=== PATIENT | female | born 1940 | race Caucasian/White ===

== ENCOUNTER 2016-08-31 09:11 | Outpatient (CLI) | payer MEDICARE, BC ==
[~2016-08-31 09:11] MED LIST: AMLO5TAB4 PO; CALC-883 PO; CLON0.1T14 PO; DULO60CA45 PO; ERGO50003 PO; HYDR-552 PO; LORA0.5T PO; MAG30ORA PO; MAGN400O4 PO; MAGN400T26 GT; MIRT15TA7 PO; MULT1TAB11 PO; NA P133E RC; PANT40SU PO
== END 2016-08-31 23:59 | disposition home or self-care (01) ==
LOC: CT 09:11
PROVIDERS: ATTEND Internal Medicine
DX: D17.0 Benign lipomatous neoplasm of skin and subcutaneous tissue of head, face and neck (principal)
CPT/HCPCS: 70450-TC

== ENCOUNTER 2016-10-13 14:09 | Inpatient (IN) | payer MEDICARE, BC ==
[~2016-10-13] VITALS: Ht 160 cm; Wt 78.1 kg
[2016-10-13] MEDS ORDERED: MORPHINE SULFATE INJ 2 MG/ML DISP.SYRIN IV ONE (14:30)
[2016-10-13] MEDS ORDERED: ONDANSETRON HCL/PF 4 MG/2 ML VIAL IVP ONE (14:30)
[2016-10-13] MEDS ORDERED: IV NS 0.9% 500 ML BAG IV ONE (14:30)
[2016-10-13] MEDS ORDERED: IV NS 0.9% 500 ML IV ONE (14:38)
[2016-10-13] MEDS ORDERED: IV SET PRIMARY 1 EA INFUS.SET MC ONE ×2 (14:38→15:46)
[2016-10-13] MEDS ORDERED: ONDANSETRON HCL/PF 4 MG/2 ML VIAL ONE (14:38)
[2016-10-13] MEDS ORDERED: MORPHINE SULFATE INJ 4 MG/ML DISP.SYRIN ONE (14:38)
[2016-10-13 14:40] LABS: BASOPHILS # (AUTO) 0.4 /CMM (0.0-0.2); BASOPHILS % (AUTO) 2.7 % (0.0-2.0); EOSINOPHILS % (AUTO) 0.1 % (0.0-6.0); HEMATOCRIT 33 % (33-45); LYMPHOCYTES # (AUTO) 0.6 /CMM (0.8-4.8); LYMPHOCYTES % (AUTO) 4.1 % (20.0-44.0); MEAN CORPUSCULAR HEMOGLOBIN 32 PG (26.0-33.0); MEAN CORPUSCULAR HGB CONC 34 g/dl (31.0-36.0); MEAN CORPUSCULAR VOLUME 95 fL (82-100); MONOCYTES # (AUTO) 1.2 /CMM (0.1-1.30); MONOCYTES % (AUTO) 8.8 % (2.0-12.0); NEUTROPHILS % (AUTO) 84.3 % (43.0-81.0); PLATELET COUNT (AUTO) 250 /CMM (150-450); RDW COEFFICIENT OF VARIATION 13.2 (11.5-15.0); RED BLOOD CELL COUNT(AUTO) 3.43 MIL/uL (4.0-5.2); WHITE BLOOD COUNT (AUTO) 14.2 K/uL (4.3-11.0)
[2016-10-13 14:54] LABS: INR 1.01 (0.87-1.13); PROTHROMBIN TIME 10.5 SECS (9.5-12.7)
[2016-10-13 14:57] LABS: ALANINE AMINOTRANSFERASE 10 U/L (12-78); ALBUMIN 3.4 g/dL (3.4-5.0); ALKALINE PHOSPHATASE 69 U/L (46-116); ASPARTATE AMINOTRANSFERASE 25 U/L (15-37); BILIRUBIN,DIRECT 0.1 mg/dL (0.0-0.2); BILIRUBIN,TOTAL 0.4 mg/dL (0.2-1.0); CALCIUM, SERUM 8.7 mg/dL (8.5-10.1); CARBON DIOXIDE 14 mmol/L (21-32); CHLORIDE 108 mmol/L (98-107); CREATININE 5.1 mg/dL (0.6-1.3); GLUCOSE 183 mg/dL (74-106); LIPASE 146 U/L (73-393); POTASSIUM 3.7 mmol/L (3.5-5.1); SODIUM SERUM 139 mmol/L (136-145); TOTAL PROTEIN, SERUM 7.3 g/dL (6.4-8.2)
[2016-10-13 14:58] LABS: TROPONIN I < 0.017 ng/mL (0.00-0.056)
[2016-10-13 14:59] LABS: UREA NITROGEN, BLOOD 87 mg/dL (7-18)
[2016-10-13] MEDS ORDERED: IV NS 0.9% 1,000 ML BAG IV ONE (15:30)
[2016-10-13 15:44] LABS: APPEARANCE,URINE Clear (CLEAR); BLOOD, URINE Negative Ery/uL (NEGATIVE); COLOR,URINE Yellow (YELLOW); KETONES,URINE Trace (NEGATIVE); LEUKOCYTE ESTERASE ,URINE Small (NEGATIVE); NITRITE, URINE Negative (NEGATIVE); PROTEIN,URINE 30 mg/dl (NEGATIVE); UGLUCOSE Negative (NEGATIVE); UROBILINOGEN,URINE 0.2 EU/dL (0.2)
[2016-10-13] MEDS ORDERED: IV NS 0.9% 1,000 ML ONE (15:46)
[2016-10-13] MEDS ORDERED: LEVOFLOXACIN 750 MG /D5W 150ML 150 ML IV ONE ×2 (16:00→16:08)
[2016-10-13] MEDS ORDERED: IV SET PRIMARY PUMP SET 1 EA INFUS.SET MC ONE ×2 (16:08→19:53)
[2016-10-13 16:23] LABS: BILIRUBIN,URINE SMALL (NEGATIVE)
[2016-10-13 16:24] LABS: BACTERIA,URINE Few /HPF (None Seen); RBC,URINE 0-2 /HPF (0-2); SQUAMOUS EPITHELIAL CELL,UR Few /HPF (None Seen)
[2016-10-13] MEDS ORDERED: MAGNESIUM HYDROXIDE 30 ML UDC PO PRN (18:00)
[2016-10-13] MEDS ORDERED: Z GUARD REMEDY 2 OZ OINT TP PRN (18:00)
[2016-10-13] MEDS ORDERED: NA PHOS,M-B/NA PHOS,DI-BA 1 EA ENEMA RC PRN (18:00)
[2016-10-13] MEDS ORDERED: ZOLPIDEM TARTRATE 5 MG TABLET PO PRN (18:00)
[2016-10-13] MEDS ORDERED: ACETAMINOPHEN 325 MG TABLET PO PRN (18:00)
[2016-10-13] MEDS ORDERED: CLONIDINE HCL 0.1 MG TABLET PO PRN (18:00)
[2016-10-13] MEDS ORDERED: MAG HYDROX/AL HYDROX/SIMETH 30 ML UDC PO PRN (18:00)
[2016-10-13] MEDS ORDERED: ONDANSETRON HCL/PF 4 MG/2 ML VIAL IVP PRN (18:00)
[2016-10-13 19:30] VITALS: BP 103/52
[2016-10-13] MEDS ORDERED: SECONDARY IV SET 1 EA INFUS.SET MC ONE (19:53)
[2016-10-13 20:00] VITALS: BP 103/52
[2016-10-13] MEDS: IV NS 0.9% 1,000 ML IV PRN (20:04)
[2016-10-13] MEDS: CEFTRIAXONE 1 G in IV D5W 50 ML IV SCH (20:12)
[2016-10-13] MEDS: AZITHROMYCIN 500 MG in IV D5W 250 ML IV SCH (20:43)
[2016-10-13] MEDS: MIRTAZAPINE 15 MG TABLET PO SCH (21:28)
[2016-10-14] MEDS: LORAZEPAM 0.5 MG TABLET PO PRN ×3 (01:01→17:30)
[2016-10-14] MEDS ORDERED: LORA-258 PO (01:44)
[2016-10-14] MEDS ORDERED: SPIR25TA PO (01:44)
[2016-10-14] MEDS ORDERED: DULO30CA2 PO (01:44)
[2016-10-14] MEDS ORDERED: METO-304 PO (01:44)
[2016-10-14] MEDS ORDERED: BENA20TA2 PO (01:44)
[2016-10-14] MEDS ORDERED: PANT40TA2 PO (01:44)
[2016-10-14] MEDS ORDERED: CALC-838 PO (01:44)
[2016-10-14] MEDS ORDERED: DIVA250T PO (01:44)
[2016-10-14] MEDS ORDERED: CHLO25TA2 PO (01:44)
[2016-10-14] MEDS ORDERED: HYDR-3326 GT (01:44)
[2016-10-14] MEDS ORDERED: MIRT15TA7 PO (01:44)
[2016-10-14 08:00] VITALS: BP 103/55
[2016-10-14] MEDS: PANTOPRAZOLE 40 MG TABLET.DR PO SCH (08:48)
[2016-10-14] MEDS: MULTIPLE VIT/MINERALS 1 EA TABLET PO SCH (08:48)
[2016-10-14] MEDS: CALCIUM CARB 250MG /VITAMIN D 1 UDTAB PO SCH (08:48)
[2016-10-14] MEDS ORDERED: Medication Not On Formulary EA (Duloxetine Hcl (Cymbalta) 60 MG) PO SCH (09:00)
[2016-10-14 10:34] LABS: EOSINOPHILS % (AUTO) 0.2 % (0.0-6.0); HEMATOCRIT 27 % (33-45); LYMPHOCYTES % (AUTO) 6.9 % (20.0-44.0); MEAN CORPUSCULAR HEMOGLOBIN 31 PG (26.0-33.0); MEAN CORPUSCULAR HGB CONC 33 g/dl (31.0-36.0); MEAN CORPUSCULAR VOLUME 95 fL (82-100); MONOCYTES # (AUTO) 1.2 /CMM (0.1-1.30); MONOCYTES % (AUTO) 7.6 % (2.0-12.0); NEUTROPHILS # (AUTO) 13.1 /CMM (1.8-8.9); NEUTROPHILS % (AUTO) 85.3 % (43.0-81.0); PLATELET COUNT (AUTO) 210 /CMM (150-450); RDW COEFFICIENT OF VARIATION 13.9 (11.5-15.0); RED BLOOD CELL COUNT(AUTO) 2.86 MIL/uL (4.0-5.2); WHITE BLOOD COUNT (AUTO) 15.3 K/uL (4.3-11.0)
[2016-10-14] MEDS: AMLODIPINE BESYLATE 5 MG TABLET PO SCH (11:00)
[2016-10-14 11:12] LABS: ALBUMIN 2.6 g/dL (3.4-5.0); BILIRUBIN,TOTAL 0.3 mg/dL (0.2-1.0); CALCIUM, SERUM 8.2 mg/dL (8.5-10.1); CREATININE 4.6 mg/dL (0.6-1.3); MAGNESIUM 1.8 mg/dL (1.8-2.4); PHOSPHORUS 3.9 mg/dL (2.5-4.9); POTASSIUM 3.9 mmol/L (3.5-5.1); TOTAL PROTEIN, SERUM 6.3 g/dL (6.4-8.2)
[2016-10-14] MEDS: IV NS 0.9% 1,000 ML IV PRN (13:47)
[2016-10-14 16:00] VITALS: BP 116/77
[2016-10-14] MEDS: LACTOBACILLUS RHAMNOSUS GG 1 EACH CAP.SPRINK PO SCH (17:27)
[2016-10-14] MEDS: CEFTRIAXONE 1 G in IV D5W 50 ML IV SCH (18:50)
[2016-10-14 20:20] VITALS: BP 135/66
[2016-10-14] MEDS: AZITHROMYCIN 500 MG in IV D5W 250 ML IV SCH (20:42)
[2016-10-14] MEDS: MIRTAZAPINE 15 MG TABLET PO SCH (21:29)
[2016-10-14 22:00] VITALS: BP 135/66
[2016-10-15] MEDS: IV NS 0.9% 1,000 ML IV PRN ×2 (06:04→20:53)
[2016-10-15 08:00] VITALS: BP 125/100
[2016-10-15] MEDS: AMLODIPINE BESYLATE 5 MG TABLET PO SCH (08:10)
[2016-10-15] MEDS: MULTIPLE VIT/MINERALS 1 EA TABLET PO SCH (08:10)
[2016-10-15] MEDS: PANTOPRAZOLE 40 MG TABLET.DR PO SCH (08:10)
[2016-10-15] MEDS: CALCIUM CARB 250MG /VITAMIN D 1 UDTAB PO SCH (08:10)
[2016-10-15] MEDS: LACTOBACILLUS RHAMNOSUS GG 1 EACH CAP.SPRINK PO SCH ×2 (08:10→17:56)
[2016-10-15 08:13] LABS: EOSINOPHILS # (AUTO) 0.1 /CMM (0.0-0.7); EOSINOPHILS % (AUTO) 0.9 % (0.0-6.0); HEMATOCRIT 29 % (33-45); HEMOGLOBIN 9.4 g/dL (11.5-14.8); LYMPHOCYTES # (AUTO) 1.4 /CMM (0.8-4.8); LYMPHOCYTES % (AUTO) 10.1 % (20.0-44.0); MEAN CORPUSCULAR HEMOGLOBIN 31 PG (26.0-33.0); MEAN CORPUSCULAR HGB CONC 32 g/dl (31.0-36.0); MEAN CORPUSCULAR VOLUME 97 fL (82-100); MONOCYTES # (AUTO) 1.3 /CMM (0.1-1.30); NEUTROPHILS # (AUTO) 11.2 /CMM (1.8-8.9); PLATELET COUNT (AUTO) 224 /CMM (150-450); RDW COEFFICIENT OF VARIATION 14.4 (11.5-15.0)
[2016-10-15 08:20] LABS: ALBUMIN 2.9 g/dL (3.4-5.0); BILIRUBIN,TOTAL 0.2 mg/dL (0.2-1.0); CALCIUM, SERUM 8.8 mg/dL (8.5-10.1); CREATININE 4.2 mg/dL (0.6-1.3); MAGNESIUM 1.9 mg/dL (1.8-2.4); PHOSPHORUS 4.2 mg/dL (2.5-4.9); POTASSIUM 4.3 mmol/L (3.5-5.1)
[2016-10-15 09:37] LABS: CREATINE KINASE MB 56.5 ng/mL (0-3.6)
[2016-10-15 16:00] VITALS: BP 152/82
[2016-10-15] MEDS: CEFTRIAXONE 1 G in IV D5W 50 ML IV SCH (17:36)
[2016-10-15 20:00] VITALS: BP_SYST 147; BP_SYST 149; BP_DIAS 67
[2016-10-15] MEDS: AZITHROMYCIN 500 MG in IV D5W 250 ML IV SCH (20:47)
[2016-10-15] MEDS: DIVALPROEX SODIUM 250 MG TABLET.DR PO SCH (21:00)
[2016-10-15] MEDS: MIRTAZAPINE 15 MG TABLET PO SCH (21:39)
[2016-10-16 07:51] LABS: BASOPHILS % (AUTO) 0.4 % (0.0-2.0); EOSINOPHILS # (AUTO) 0.3 /CMM (0.0-0.7); EOSINOPHILS % (AUTO) 2.4 % (0.0-6.0); HEMATOCRIT 28 % (33-45); HEMOGLOBIN 9.3 g/dL (11.5-14.8); LYMPHOCYTES # (AUTO) 1.7 /CMM (0.8-4.8); LYMPHOCYTES % (AUTO) 13.6 % (20.0-44.0); MEAN CORPUSCULAR HEMOGLOBIN 32 PG (26.0-33.0); MEAN CORPUSCULAR HGB CONC 33 g/dl (31.0-36.0); MEAN CORPUSCULAR VOLUME 97 fL (82-100); MONOCYTES # (AUTO) 1.1 /CMM (0.1-1.30); MONOCYTES % (AUTO) 8.5 % (2.0-12.0); NEUTROPHILS # (AUTO) 9.3 /CMM (1.8-8.9); NEUTROPHILS % (AUTO) 75.1 % (43.0-81.0); PLATELET COUNT (AUTO) 248 /CMM (150-450); RDW COEFFICIENT OF VARIATION 14.6 (11.5-15.0); RED BLOOD CELL COUNT(AUTO) 2.94 MIL/uL (4.0-5.2); WHITE BLOOD COUNT (AUTO) 12.4 K/uL (4.3-11.0)
[2016-10-16 08:00] VITALS: BP 147/102
[2016-10-16 08:10] LABS: CALCIUM, SERUM 8.7 mg/dL (8.5-10.1); CREATININE 3.9 mg/dL (0.6-1.3)
[2016-10-16] MEDS: PANTOPRAZOLE 40 MG TABLET.DR PO SCH (09:43)
[2016-10-16] MEDS: MULTIPLE VIT/MINERALS 1 EA TABLET PO SCH (09:43)
[2016-10-16] MEDS: CALCIUM CARB 250MG /VITAMIN D 1 UDTAB PO SCH (09:43)
[2016-10-16] MEDS: LACTOBACILLUS RHAMNOSUS GG 1 EACH CAP.SPRINK PO SCH ×2 (09:43→17:01)
[2016-10-16] MEDS: AMLODIPINE BESYLATE 5 MG TABLET PO SCH (09:47)
[2016-10-16 13:32] LABS: PTH, INTACT 65 pg/mL (15-65)
[2016-10-16 16:00] VITALS: BP 142/85
[2016-10-16] MEDS: CEFTRIAXONE 1 G in IV D5W 50 ML IV SCH (17:02)
[2016-10-16] MEDS: AZITHROMYCIN 500 MG in IV D5W 250 ML IV SCH (19:54)
[2016-10-16 20:00] VITALS: BP 165/88
[2016-10-16] MEDS: MIRTAZAPINE 15 MG TABLET PO SCH (22:11)
[2016-10-16] MEDS: DIVALPROEX SODIUM 250 MG TABLET.DR PO SCH (22:11)
[2016-10-16] MEDS: LORAZEPAM 0.5 MG TABLET PO PRN (23:03)
[2016-10-16] MEDS: MORPHINE SULFATE INJ 2 MG/ML DISP.SYRIN IV PRN (23:27)
[2016-10-17] MEDS: IV NS 0.9% 1,000 ML IV PRN ×2 (03:59→15:13)
[2016-10-17 07:15] LABS: BASOPHILS % (AUTO) 0.2 % (0.0-2.0); EOSINOPHILS # (AUTO) 0.5 /CMM (0.0-0.7); EOSINOPHILS % (AUTO) 4.4 % (0.0-6.0); HEMATOCRIT 26 % (33-45); HEMOGLOBIN 8.6 g/dL (11.5-14.8); LYMPHOCYTES # (AUTO) 2.5 /CMM (0.8-4.8); LYMPHOCYTES % (AUTO) 23.8 % (20.0-44.0); MEAN CORPUSCULAR HEMOGLOBIN 32 PG (26.0-33.0); MEAN CORPUSCULAR HGB CONC 33 g/dl (31.0-36.0); MEAN CORPUSCULAR VOLUME 96 fL (82-100); MONOCYTES # (AUTO) 0.9 /CMM (0.1-1.30); MONOCYTES % (AUTO) 8.9 % (2.0-12.0); NEUTROPHILS # (AUTO) 6.5 /CMM (1.8-8.9); NEUTROPHILS % (AUTO) 62.7 % (43.0-81.0); PLATELET COUNT (AUTO) 242 /CMM (150-450); RDW COEFFICIENT OF VARIATION 14.4 (11.5-15.0); WHITE BLOOD COUNT (AUTO) 10.4 K/uL (4.3-11.0)
[2016-10-17 07:31] LABS: CALCIUM, SERUM 8.6 mg/dL (8.5-10.1); CREATININE 3.3 mg/dL (0.6-1.3); POTASSIUM 3.9 mmol/L (3.5-5.1)
[2016-10-17 08:00] VITALS: BP 129/58
[2016-10-17] MEDS: AMLODIPINE BESYLATE 5 MG TABLET PO SCH (08:31)
[2016-10-17] MEDS: PANTOPRAZOLE 40 MG TABLET.DR PO SCH (08:31)
[2016-10-17] MEDS: LACTOBACILLUS RHAMNOSUS GG 1 EACH CAP.SPRINK PO SCH ×2 (08:31→17:29)
[2016-10-17] MEDS: MULTIPLE VIT/MINERALS 1 EA TABLET PO SCH (08:31)
[2016-10-17] MEDS: CALCIUM CARB 250MG /VITAMIN D 1 UDTAB PO SCH (08:31)
[2016-10-17] MEDS ORDERED: ERGOCALCIFEROL (VITAMIN D 2) 50,000 UNIT CAPSULE PO SCH (09:00)
[2016-10-17] MEDS: HYDROCODONE/APAP 5/325MG 1 EACH TABLET PO PRN (15:13)
[2016-10-17 16:00] VITALS: BP 182/74
[2016-10-17 16:30] VITALS: BP 153/80
[2016-10-17] MEDS: CEFTRIAXONE 1 G in IV D5W 50 ML IV SCH (17:29)
[2016-10-17 20:00] VITALS: BP 154/74
[2016-10-17] MEDS ORDERED: SECONDARY IV SET 1 EA INFUS.SET MC ONE (20:03)
[2016-10-17] MEDS: AZITHROMYCIN 500 MG in IV D5W 250 ML IV SCH (20:04)
[2016-10-17 21:20] VITALS: BP 156/71
[2016-10-17] MEDS: MIRTAZAPINE 15 MG TABLET PO SCH (21:38)
[2016-10-17] MEDS: DIVALPROEX SODIUM 250 MG TABLET.DR PO SCH (21:38)
[2016-10-18] VITALS: BP 150/74
[2016-10-18] MEDS: HYDROCODONE/APAP 5/325MG 1 EACH TABLET PO PRN ×2 (02:43→08:07)
[2016-10-18] MEDS ORDERED: IV SET PRIMARY PUMP SET 1 EA INFUS.SET MC ONE (03:39)
[2016-10-18] MEDS: IV NS 0.9% 1,000 ML IV PRN (03:44)
[2016-10-18] MEDS: LORAZEPAM 0.5 MG TABLET PO PRN ×2 (06:22→10:45)
[2016-10-18 08:00] VITALS: BP 186/93
[2016-10-18] MEDS: LACTOBACILLUS RHAMNOSUS GG 1 EACH CAP.SPRINK PO SCH ×2 (08:06→17:11)
[2016-10-18] MEDS: PANTOPRAZOLE 40 MG TABLET.DR PO SCH (08:06)
[2016-10-18] MEDS: AMLODIPINE BESYLATE 5 MG TABLET PO SCH (08:06)
[2016-10-18] MEDS: CALCIUM CARB 250MG /VITAMIN D 1 UDTAB PO SCH (08:06)
[2016-10-18] MEDS: MULTIPLE VIT/MINERALS 1 EA TABLET PO SCH (08:07)
[2016-10-18 08:12] LABS: BASOPHILS # (AUTO) 0.1 /CMM (0.0-0.2); BASOPHILS % (AUTO) 0.4 % (0.0-2.0); EOSINOPHILS # (AUTO) 0.6 /CMM (0.0-0.7); HEMATOCRIT 28 % (33-45); HEMOGLOBIN 9.3 g/dL (11.5-14.8); LYMPHOCYTES # (AUTO) 2.9 /CMM (0.8-4.8); MEAN CORPUSCULAR HEMOGLOBIN 32 PG (26.0-33.0); MEAN CORPUSCULAR HGB CONC 33 g/dl (31.0-36.0); MEAN CORPUSCULAR VOLUME 96 fL (82-100); MONOCYTES # (AUTO) 1.1 /CMM (0.1-1.30); MONOCYTES % (AUTO) 9.8 % (2.0-12.0); NEUTROPHILS % (AUTO) 59.8 % (43.0-81.0); PLATELET COUNT (AUTO) 301 /CMM (150-450); RDW COEFFICIENT OF VARIATION 14.2 (11.5-15.0); WHITE BLOOD COUNT (AUTO) 11.7 K/uL (4.3-11.0)
[2016-10-18 08:21] LABS: CALCIUM, SERUM 8.5 mg/dL (8.5-10.1); CREATININE 2.8 mg/dL (0.6-1.3)
[2016-10-18 09:25] LABS: CALCITRIOL VIT D,1, 25 DIHYDRO 37.2 pg/mL (19.9-79.3)
[2016-10-18 16:00] VITALS: BP 158/78
[2016-10-18] MEDS ORDERED: SECONDARY IV SET 1 EA INFUS.SET MC ONE (17:05)
[2016-10-18] MEDS: CEFTRIAXONE 1 G in IV D5W 50 ML IV SCH (17:11)
[2016-10-18] MEDS: AZITHROMYCIN 500 MG in IV D5W 250 ML IV SCH (19:58)
[2016-10-18 20:20] VITALS: BP 167/102
[2016-10-18] MEDS: MIRTAZAPINE 15 MG TABLET PO SCH (21:28)
[2016-10-18] MEDS: DIVALPROEX SODIUM 250 MG TABLET.DR PO SCH (21:28)
[2016-10-19 00:11] VITALS: BP 147/72
[2016-10-19] MEDS: IV NS 0.9% 1,000 ML IV PRN (01:18)
[2016-10-19] MEDS: HYDROCODONE/APAP 5/325MG 1 EACH TABLET PO PRN ×3 (02:38→12:07)
[2016-10-19] MEDS: LORAZEPAM 0.5 MG TABLET PO PRN (05:17)
[2016-10-19 06:54] LABS: BASOPHILS % (AUTO) 0.3 % (0.0-2.0); EOSINOPHILS # (AUTO) 0.5 /CMM (0.0-0.7); EOSINOPHILS % (AUTO) 5.2 % (0.0-6.0); HEMATOCRIT 28 % (33-45); HEMOGLOBIN 9.1 g/dL (11.5-14.8); MEAN CORPUSCULAR HEMOGLOBIN 32 PG (26.0-33.0); MEAN CORPUSCULAR HGB CONC 33 g/dl (31.0-36.0); MEAN CORPUSCULAR VOLUME 96 fL (82-100); MONOCYTES % (AUTO) 11.6 % (2.0-12.0); NEUTROPHILS # (AUTO) 5.5 /CMM (1.8-8.9); NEUTROPHILS % (AUTO) 60.9 % (43.0-81.0); PLATELET COUNT (AUTO) 287 /CMM (150-450); RDW COEFFICIENT OF VARIATION 14.4 (11.5-15.0); RED BLOOD CELL COUNT(AUTO) 2.87 MIL/uL (4.0-5.2)
[2016-10-19 07:15] LABS: CALCIUM, SERUM 8.5 mg/dL (8.5-10.1); CREATININE 2.6 mg/dL (0.6-1.3); POTASSIUM 4.2 mmol/L (3.5-5.1)
[2016-10-19 08:52] VITALS: BP 156/80
[2016-10-19] MEDS: CALCIUM CARB 250MG /VITAMIN D 1 UDTAB PO SCH ×2 (08:52→08:56)
[2016-10-19] MEDS: MULTIPLE VIT/MINERALS 1 EA TABLET PO SCH (08:52)
[2016-10-19] MEDS: AMLODIPINE BESYLATE 5 MG TABLET PO SCH (08:52)
[2016-10-19] MEDS: PANTOPRAZOLE 40 MG TABLET.DR PO SCH (08:52)
[2016-10-19] MEDS: LACTOBACILLUS RHAMNOSUS GG 1 EACH CAP.SPRINK PO SCH (08:52)
[2016-10-19] MEDS: MORPHINE SULFATE INJ 2 MG/ML DISP.SYRIN IV PRN (09:55)
[2016-10-19 10:17] LABS: *SPE ALBUMIN 2.7 g/dL (2.9-4.4); *SPE ALPHA-1-GLOBULIN 0.3 g/dL (0.0-0.4); *SPE ALPHA-2-GLOBULIN 0.7 g/dL (0.4-1.0); *SPE BETA GLOBULIN 0.6 g/dL (0.7-1.3); *SPE GLOBULIN, TOTAL 2.6 g/dL (2.2-3.9); *SPE M-SPIKE Not Observed g/dL (Not Observed); *SPE PROTEIN TOTAL 5.3 g/dL (6.0-8.5); *SPEGAMMA GLOBULIN 0.9 g/dL (0.4-1.8)
[2016-10-19] MEDS ORDERED: LEVO500T15 PO (11:16)
[2016-10-19] MEDS ORDERED: AZITHROMYCIN 250 MG TABLET PO SCH (20:00)
== END 2016-10-19 13:30 | disposition home or self-care (01) | DRG 682 ==
LOC: ER 14:10 → MED 17:24
PROVIDERS: ADMIT Family Medicine; ATTEND Family Medicine
DX: N17.9 Acute kidney failure, unspecified (principal); J15.9 Unspecified bacterial pneumonia; N39.0 Urinary tract infection, site not specified; F05 Delirium due to known physiological condition; I12.9 Hypertensive chronic kidney disease with stage 1 through stage 4 chronic kidney disease, or unspecified chronic kidney disease; E86.0 Dehydration; I25.10 Atherosclerotic heart disease of native coronary artery without angina pectoris; F03.90 Unspecified dementia, unspecified severity, without behavioral disturbance, psychotic disturbance, mood disturbance, and anxiety; D64.9 Anemia, unspecified; K58.9 Irritable bowel syndrome, unspecified; I48.2 Chronic atrial fibrillation; N18.9 Chronic kidney disease, unspecified; R59.0 Localized enlarged lymph nodes; F41.9 Anxiety disorder, unspecified; F31.9 Bipolar disorder, unspecified; Z91.81 History of falling; Z79.899 Other long term (current) drug therapy; D63.8 Anemia in other chronic diseases classified elsewhere; L30.4 Erythema intertrigo; Z74.01 Bed confinement status
CPT/HCPCS: 36415; 70450-TC; 71010-TC; 80048-TC; 80053-TC; 80076-TC; 81000-TC; 82306; 82550-TC; 82553-TC; 82652; 83605-TC; 83690-TC; 83735-TC; 83970; 84100-TC; 84155; 84165; 84484-TC; 85025-TC; 85730-TC; 87040-TC; 87081-TC; 87086-TC; 97001-TC; 97116-TC; 97530-TC; A4606; J0456; J0696; J1956; J2270; J2405; J7030; J7040; J7060; Z7610

== ENCOUNTER 2017-07-06 10:29 | Emergency (ER) | payer MEDICARE, BC ==
[~2017-07-06] VITALS: Ht 152.4 cm; Wt 85.7 kg
[~2017-07-06 10:29] MED LIST changes: +BENA20TA2 PO; +CALC-838 PO; +CHLO25TA2 PO; +DIVA250T PO; +DULO30CA2 PO; +ERGO500014 PO; -ERGO50003 PO; +LEVO500T75 PO; -MAG30ORA PO; +MAGN400O21 PO; -MAGN400O4 PO; +METO-357 PO; -MULT1TAB11 PO; +SPIR25TA PO
--- NOTE | 2017-07-06 10:35 | NUR ---
BIB CAREGIVER FROM [facility] ABNORMAL EKG, CUZ=118K. PATIENT IS A/XO 3. BREATHING EVEN AND UNLABORED. NO SOB, DENIES CHEST PAIN. ASSISTED TO BED, NEW IV STARTED ON RAC, 20 G. PLACED ON MONITOR. SAFETY AND COMFORT MEASURES IN PLACE. MD AT BEDSIDE FOR EVAL.
[2017-07-06] MEDS ORDERED: ADENOSINE 6 MG/2 ML VIAL ONE (10:41)
--- NOTE | 2017-07-06 10:45 | NUR ---
ADENOSINE 6MG GIVEN VIA IV ON RAC, 20 G, WITH SUCCESSFUL CONVERSION OF SVT. NO COMPLICATIONS NOTED, WILL CONTINUE TO MONITOR.
[2017-07-06] MEDS ORDERED: ADENOSINE 6 MG/2 ML VIAL IVP ONE (11:00)
[2017-07-06] MEDS ORDERED: ASPIRIN EC 325 MG TABLET.DR PO ONE (11:00)
[2017-07-06] MEDS ORDERED: IV NS 0.9% 1,000 ML BAG IV ONE (11:00)
[2017-07-06] MEDS ORDERED: ASPIRIN 325 MG TABLET ONE (11:03)
--- NOTE | 2017-07-06 11:08 | NUR ---
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
[2017-07-06 11:10] LABS: BASOPHILS % (AUTO) 0.2 % (0.0-2.0); EOSINOPHILS # (AUTO) 0.1 /CMM (0.0-0.7); EOSINOPHILS % (AUTO) 0.9 % (0.0-6.0); HEMATOCRIT 35 % (33-45); HEMOGLOBIN 11.9 g/dL (11.5-14.8); LYMPHOCYTES # (AUTO) 1.3 /CMM (0.8-4.8); LYMPHOCYTES % (AUTO) 14.1 % (20.0-44.0); MEAN CORPUSCULAR HEMOGLOBIN 32 PG (26.0-33.0); MEAN CORPUSCULAR HGB CONC 34 g/dl (31.0-36.0); MEAN CORPUSCULAR VOLUME 95 fL (82-100); MONOCYTES # (AUTO) 0.6 /CMM (0.1-1.30); MONOCYTES % (AUTO) 7.2 % (2.0-12.0); NEUTROPHILS % (AUTO) 77.6 % (43.0-81.0); PLATELET COUNT (AUTO) 127 /CMM (150-450); RDW COEFFICIENT OF VARIATION 13.9 (11.5-15.0); RED BLOOD CELL COUNT(AUTO) 3.69 MIL/uL (4.0-5.2)
[2017-07-06 11:19] LABS: CALCIUM, SERUM 8.5 mg/dL (8.5-10.1); CARBON DIOXIDE 20 mmol/L (21-32); CHLORIDE 106 mmol/L (98-107); CREATININE 3.6 mg/dL (0.6-1.3); GLUCOSE 161 mg/dL (74-106); POTASSIUM 4.6 mmol/L (3.5-5.1); SODIUM SERUM 137 mmol/L (136-145); UREA NITROGEN, BLOOD 50 mg/dL (7-18)
[2017-07-06 11:23] LABS: INR 0.99 (0.85-1.15)
[2017-07-06 11:25] LABS: ALANINE AMINOTRANSFERASE 10 U/L (12-78); ALBUMIN 2.9 g/dL (3.4-5.0); ALKALINE PHOSPHATASE 72 U/L (46-116); ASPARTATE AMINOTRANSFERASE 19 U/L (15-37); BILIRUBIN,DIRECT 0.1 mg/dL (0.0-0.2); BILIRUBIN,TOTAL 0.3 mg/dL (0.2-1.0)
[2017-07-06 11:26] LABS: TROPONIN I 0.034 ng/mL (0.00-0.056)
--- NOTE | 2017-07-06 12:18 | NUR ---
PAGED [employer] SAFETY MANAGER -- DR MANCINI.
--- NOTE | 2017-07-06 12:38 | NUR ---
call back from dr brush
[2017-07-06 12:58] VITALS: BP 122/61
--- NOTE | 2017-07-06 13:06 | NUR ---
IV removed. Catheter intact and site benign. Pressure and 4x4 applied to site. No bleeding noted. Patient discharged to home in stable condition. Written and verbal after care instructions given. Patient verbalizes understanding of instruction.
== END 2017-07-06 13:06 | disposition home or self-care (01) ==
LOC: ER 10:30
DX: I47.1 Supraventricular tachycardia (principal); I12.9 Hypertensive chronic kidney disease with stage 1 through stage 4 chronic kidney disease, or unspecified chronic kidney disease; N18.9 Chronic kidney disease, unspecified; F41.9 Anxiety disorder, unspecified; K58.9 Irritable bowel syndrome, unspecified; Z79.82 Long term (current) use of aspirin
CPT/HCPCS: 36415; 71045; 80048; 80076; 84443; 84484; 85025; 85730; 93005; 96361; 96374; 99152; 99285; A4606; J0153; Z7610

== ENCOUNTER 2018-07-12 20:41 | Emergency (ER) | payer MEDICARE, BC ==
[~2018-07-12] VITALS: Ht 157.5 cm; Wt 70.8 kg
[~2018-07-12 20:41] MED LIST changes: -AMLO5TAB4 PO; -BENA20TA2 PO; -CALC-838 PO; -CALC-883 PO; -CLON0.1T14 PO; -DULO60CA45 PO; +HYDR-4077 PO; +HYDR-4384 PO; -HYDR-552 PO; -MAGN400T26 GT; +OMEP20CA10 PO; -PANT40SU PO; +RISP0.5T20 PO
--- NOTE | 2018-07-12 20:45 | NUR ---
PT BIBRA C/O ABDOMINAL PAIN X1 DAY. PT APPEARS UNCOMFORTABLE AND RESTLESS. PT DENIES SOB, CHEST PAIN, HEADACHE, DIZZINESS. PT PLACED IN GOWN AND ON MONITOR, WILL CONTINUE TO MONITOR
--- NOTE | 2018-07-12 20:50 | NUR ---
MD AT BEDSIDE FOR EVALUATION
[2018-07-12] MEDS ORDERED: HYDROMORPHONE 1 MG/1 ML DISP.SYRIN ONE (20:58)
[2018-07-12] MEDS ORDERED: ONDANSETRON HCL/PF 4 MG/2 ML VIAL ONE (20:58)
[2018-07-12] MEDS ORDERED: LORAZEPAM INJ 2 MG/ML VIAL ONE (20:59)
[2018-07-12] MEDS: LORAZEPAM INJ 2 MG/ML VIAL IV ONE (21:17)
[2018-07-12] MEDS: HYDROMORPHONE INJ 2 MG/ML DISP.SYRIN IV ONE (21:19)
[2018-07-12] MEDS: ONDANSETRON HCL/PF 4 MG/2 ML VIAL IVP ONE (21:21)
[2018-07-12 21:24] LABS: BASOPHILS # (AUTO) 0.1 /CMM (0.0-0.2); EOSINOPHILS % (AUTO) 1.1 % (0.0-6.0); HEMATOCRIT 34 % (33-45); HEMOGLOBIN 11.3 g/dL (11.5-14.8); LYMPHOCYTES # (AUTO) 2.1 /CMM (0.8-4.8); LYMPHOCYTES % (AUTO) 18.6 % (20.0-44.0); MEAN CORPUSCULAR HGB CONC 34 g/dl (31.0-36.0); MEAN CORPUSCULAR VOLUME 95 fL (82-100); MONOCYTES # (AUTO) 1.1 /CMM (0.1-1.30); MONOCYTES % (AUTO) 9.7 % (2.0-12.0); NEUTROPHILS # (AUTO) 7.8 /CMM (1.8-8.9); NEUTROPHILS % (AUTO) 69.6 % (43.0-81.0); PLATELET COUNT (AUTO) 221 /CMM (150-450); RED BLOOD CELL COUNT(AUTO) 3.55 MIL/uL (4.0-5.2); WHITE BLOOD COUNT (AUTO) 11.2 K/uL (4.3-11.0)
--- NOTE | 2018-07-12 21:25 | NUR ---
RADIOLOGY AT BEDSIDE
[2018-07-12 21:33] LABS: CALCIUM, SERUM 9.2 mg/dL (8.5-10.1); CARBON DIOXIDE 22 mmol/L (21-32); CHLORIDE 102 mmol/L (98-107); CREATININE 2.3 mg/dL (0.6-1.3); GLUCOSE 107 mg/dL (74-106); POTASSIUM 3.8 mmol/L (3.5-5.1); SODIUM SERUM 138 mmol/L (136-145); UREA NITROGEN, BLOOD 37 mg/dL (7-18)
[2018-07-12 21:39] LABS: ALANINE AMINOTRANSFERASE 21 U/L (12-78); ALBUMIN 3.5 g/dL (3.4-5.0); ALKALINE PHOSPHATASE 79 U/L (46-116); ASPARTATE AMINOTRANSFERASE 25 U/L (15-37); BILIRUBIN,DIRECT 0.1 mg/dL (0.0-0.2); BILIRUBIN,TOTAL 0.4 mg/dL (0.2-1.0); LIPASE 180 U/L (73-393); TOTAL PROTEIN, SERUM 7.2 g/dL (6.4-8.2)
--- NOTE | 2018-07-12 22:15 | NUR ---
URINE COLLECTED AND SENT TO LAB
[2018-07-12 22:21] LABS: APPEARANCE,URINE Clear (CLEAR); BILIRUBIN,URINE Negative (NEGATIVE); BLOOD, URINE Negative Ery/uL (NEGATIVE); COLOR,URINE Yellow (YELLOW); KETONES,URINE Negative (NEGATIVE); LEUKOCYTE ESTERASE ,URINE Negative (NEGATIVE); NITRITE, URINE Negative (NEGATIVE); PROTEIN,URINE Negative (NEGATIVE); UGLUCOSE Negative (NEGATIVE); UROBILINOGEN,URINE 0.2 EU/dL (0.2)
[2018-07-12] MEDS ORDERED: NA PHOS,M-B/NA PHOS,DI-BA 1 EA ENEMA RC ONE (22:26)
[2018-07-12] MEDS: NA PHOS,M-B/NA PHOS,DI-BA 1 EA ENEMA RC ONE (22:33)
--- NOTE | 2018-07-12 23:24 | NUR ---
Swetha called for transport. ETA 1hr. Trip#[id number]
[2018-07-13 00:31] VITALS: BP 141/75
--- NOTE | 2018-07-13 00:31 | NUR ---
GAVE REPORT TO [facility] FOR TRANSPORTATION [facility]. Patient discharged to home in stable condition. Written and verbal after care instructions given. Patient verbalizes understanding of instruction. IV removed. Catheter intact and site benign. Pressure and 4x4 applied to site. No bleeding noted. PT LEFT WITH CAREGIVER
== END 2018-07-13 00:32 | disposition home or self-care (01) ==
LOC: ER 20:54
DX: R10.30 Lower abdominal pain, unspecified (principal); R60.0 Localized edema; F41.9 Anxiety disorder, unspecified; F03.90 Unspecified dementia, unspecified severity, without behavioral disturbance, psychotic disturbance, mood disturbance, and anxiety; I48.91 Unspecified atrial fibrillation; I11.9 Hypertensive heart disease without heart failure; K58.9 Irritable bowel syndrome, unspecified; R00.1 Bradycardia, unspecified
CPT/HCPCS: 36415; 71045-TC; 80048-TC; 80076-TC; 81000-TC; 83690-TC; 85025-TC; 85730-TC; J1170; J2060; J2405

== ENCOUNTER 2018-07-15 01:32 | Emergency (ER) | payer MEDICARE, BC ==
[~2018-07-15] VITALS: Ht 157.5 cm; Wt 52.2 kg
--- NOTE | 2018-07-15 01:40 | NUR ---
Pt MARCELINA complaining of abd pain since the afternoon. Pt anxious asking for pain medications, moaning, and crying about pain. Pt AXO4. Pt put on the monitor and pulse ox. Pending eval from ER .
[2018-07-15] MEDS ORDERED: MORPHINE SULFATE INJ 2 MG/ML DISP.SYRIN ONE (01:46)
[2018-07-15] MEDS ORDERED: ONDANSETRON HCL/PF 4 MG/2 ML VIAL ONE (01:46)
[2018-07-15] MEDS ORDERED: ONDANSETRON HCL/PF - ER 4 MG/2 ML VIAL IV ONE (02:00)
[2018-07-15] MEDS ORDERED: MORPHINE SULFATE INJ 2 MG/ML DISP.SYRIN IV ONE (02:00)
--- NOTE | 2018-07-15 02:00 | NUR ---
PT ANXIOUS AND MOANING BECAUSE SHE IS IN PAIN. ER MD AWARE.
[2018-07-15 02:03] LABS: BASOPHILS # (AUTO) 0.1 /CMM (0.0-0.2); BASOPHILS % (AUTO) 0.7 % (0.0-2.0); HEMATOCRIT 35 % (33-45); HEMOGLOBIN 11.6 g/dL (11.5-14.8); LYMPHOCYTES # (AUTO) 1.5 /CMM (0.8-4.8); LYMPHOCYTES % (AUTO) 14.9 % (20.0-44.0); MEAN CORPUSCULAR HGB CONC 33 g/dl (31.0-36.0); MEAN CORPUSCULAR VOLUME 96 fL (82-100); MONOCYTES # (AUTO) 1.2 /CMM (0.1-1.30); NEUTROPHILS # (AUTO) 7.2 /CMM (1.8-8.9); NEUTROPHILS % (AUTO) 71.4 % (43.0-81.0); PLATELET COUNT (AUTO) 239 /CMM (150-450); WHITE BLOOD COUNT (AUTO) 10.1 K/uL (4.3-11.0)
[2018-07-15 02:13] LABS: CALCIUM, SERUM 9.4 mg/dL (8.5-10.1); CARBON DIOXIDE 25 mmol/L (21-32); CHLORIDE 102 mmol/L (98-107); CREATININE 2.9 mg/dL (0.6-1.3); GLUCOSE 109 mg/dL (74-106); POTASSIUM 3.9 mmol/L (3.5-5.1); SODIUM SERUM 141 mmol/L (136-145); UREA NITROGEN, BLOOD 35 mg/dL (7-18)
[2018-07-15 02:18] LABS: ALANINE AMINOTRANSFERASE 25 U/L (12-78); ALBUMIN 3.7 g/dL (3.4-5.0); ALKALINE PHOSPHATASE 83 U/L (46-116); ASPARTATE AMINOTRANSFERASE 30 U/L (15-37); BILIRUBIN,DIRECT 0.1 mg/dL (0.0-0.2); BILIRUBIN,TOTAL 0.4 mg/dL (0.2-1.0); LIPASE 124 U/L (73-393); TOTAL PROTEIN, SERUM 7.7 g/dL (6.4-8.2)
--- NOTE | 2018-07-15 02:30 | NUR ---
PT STILL COMPLAINING OF PAIN. ER MD AWARE.
[2018-07-15] MEDS ORDERED: HYDROMORPHONE 1 MG/1 ML DISP.SYRIN ONE (02:35)
--- NOTE | 2018-07-15 02:45 | NUR ---
PT HYPERTENSIVE ON THE MONITOR. ER AWARE.
[2018-07-15] MEDS ORDERED: NA PHOS,M-B/NA PHOS,DI-BA 1 EA ENEMA RC ONE ×2 (02:58→03:00)
[2018-07-15] MEDS ORDERED: HYDROMORPHONE 1 MG/1 ML DISP.SYRIN IV ONE (03:00)
[2018-07-15 03:35] LABS: APPEARANCE,URINE CLEAR (CLEAR); BILIRUBIN,URINE NEGATIVE (NEGATIVE); BLOOD, URINE NEGATIVE Ery/uL (NEGATIVE); COLOR,URINE YELLOW (YELLOW); KETONES,URINE 1+ (NEGATIVE); LEUKOCYTE ESTERASE ,URINE NEGATIVE (NEGATIVE); NITRITE, URINE NEGATIVE (NEGATIVE); PH,URINE 6.5 (5.0-8.0); PROTEIN,URINE NEGATIVE (NEGATIVE); UGLUCOSE NEGATIVE (NEGATIVE); UROBILINOGEN,URINE 0.2 EU/dL (0.2)
[2018-07-15] MEDS ORDERED: LORAZEPAM INJ 2 MG/ML VIAL ONE (03:49)
[2018-07-15 03:54] LABS: BACTERIA,URINE None seen /HPF (None Seen); RBC,URINE 0-2 /HPF (0-2); SQUAMOUS EPITHELIAL CELL,UR Few /HPF (None Seen)
[2018-07-15 03:56] LABS: HYALINE CASTS, URINE Few /LPF (None Seen)
[2018-07-15] MEDS ORDERED: LORAZEPAM INJ 2 MG/ML VIAL IV ONE (04:00)
[2018-07-15] MEDS ORDERED: hydrALAZINE HCL IV 20 MG VIAL ONE ×2 (04:38→05:13)
--- NOTE | 2018-07-15 04:43 | NUR ---
PT BEING MONITORED AND RESTING IN BED, PT STATES THAT SHE IF FEELING BETTER.
[2018-07-15] MEDS ORDERED: hydrALAZINE HCL IV 20 MG VIAL IV ONE ×2 (05:00→05:30)
--- NOTE | 2018-07-15 05:39 | NUR ---
BP DOWNWARD TRENDING. ER AWARE.
--- NOTE | 2018-07-15 05:44 | NUR ---
JACQUELINE CALLED [facility] [id number]. TRANSPORT #[id number]
[2018-07-15] MEDS ORDERED: LORAZEPAM 0.5 MG TABLET ONE (06:08)
--- NOTE | 2018-07-15 06:18 | NUR ---
PT RESTING IN BED AND BEING MONITORED.
[2018-07-15] MEDS ORDERED: LORAZEPAM 1 MG TABLET PO ONE (06:30)
--- NOTE | 2018-07-15 07:21 | NUR ---
REPORT GIVEN TO ARUN OCHOA FOR [facility].
--- NOTE | 2018-07-15 07:22 | NUR ---
RECEIVED REPORT FROM JOHN OCHOA FOR [facility]. 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
--- NOTE | 2018-07-15 08:03 | NUR ---
informed MD regarding high bp and per MD its fine. Will continue to monitor accordingly.
[2018-07-15 08:51] VITALS: BP 161/89
--- NOTE | 2018-07-15 08:52 | NUR ---
Patient discharged to home in stable condition. Written and verbal after care instructions given. Patient verbalizes understanding of instruction.IV removed. Catheter intact and site benign. Pressure and 4x4 applied to site. No bleeding noted. left via PA accomapnied by caregiver, in no apparent distress noted.
== END 2018-07-15 08:51 | disposition home or self-care (01) ==
LOC: ER 01:35
DX: R10.84 Generalized abdominal pain (principal); F41.9 Anxiety disorder, unspecified; K58.9 Irritable bowel syndrome, unspecified; F29 Unspecified psychosis not due to a substance or known physiological condition; F32.9 Major depressive disorder, single episode, unspecified; H91.90 Unspecified hearing loss, unspecified ear; I48.91 Unspecified atrial fibrillation; I12.9 Hypertensive chronic kidney disease with stage 1 through stage 4 chronic kidney disease, or unspecified chronic kidney disease; N18.9 Chronic kidney disease, unspecified; F03.90 Unspecified dementia, unspecified severity, without behavioral disturbance, psychotic disturbance, mood disturbance, and anxiety
CPT/HCPCS: 36415; 74176; 80048; 80076; 81001; 83690; 85025; 96374; 96375; 96376; 99284; A4606; J0360 ×2; J1170; J2060; J2270; J2405; 81000-TC